=== PATIENT | male | born 1940 | race Caucasian/White ===

== ENCOUNTER 2021-01-16 08:45 | Day surgery (SDC) | payer MEDICARE, BC ==
[2021-01-13 12:40] LABS: BASOPHILS 0.4 % (0-2); EOSINOPHILS 5.8 % (0-7); HEMATOCRIT 39.1 % (42.0-54.0); HEMOGLOBIN 12.5 g/dL (13.5-17.5); IMMATURE GRANULOCYTES 1.3 % (0-5); LYMPHOCYTE ABS# 1.21 10x3/uL (1.32-3.57); LYMPHOCYTES 26.8 % (15-50); MCH 28.7 pg (26.0-34.0); MCV 89.9 fL (80.0-100.0); MEAN PLATELET VOLUME 9.4 fL (7.4-10.4); MONOCYTES 9.1 % (2-11); NEUTROPHIL ABS# 2.55 10x3/uL (1.78-5.38); NEUTROPHILS 56.6 % (40-80); PLATELET COUNT 110 10x3/uL (130-400); RBC 4.35 10x6/uL (4.20-6.10); RDW 14.7 % (11.5-14.5); WBC 4.5 10x3/uL (4.8-10.8)
[2021-01-13 12:43] LABS: ANION GAP 10.4 mmol/L (8-16); CALCIUM 8.5 mg/dL (8.5-10.1); CARBON DIOXIDE 27.7 mmol/L (21.0-32.0); CREATININE - SERUM 1.5 mg/dL (0.6-1.3); POTASSIUM - SERUM 4.1 mmol/L (3.5-5.1)
[~2021-01-16] VITALS: Ht 182.9 cm; Wt 100.7 kg
[~2021-01-16 08:45] MED LIST: AMIODARONE HCL200 MG PO; BAYER CHEWABLE81 MG PO; COREG25 MG PO; ENTRESTO 49 MG1 EACH PO; GABAPENTIN300 MG PO; GLIPIZIDE5 MG PO; OMEPRAZOLE20 M1 PO; ZYLOPRIM300 MG PO
[2021-01-16 09:26] VITALS: BP 133/72; Ht 182.9 cm; Wt 100.7 kg
--- NOTE | 2021-01-16 13:24 | NUR ---
1215 IV REMOVED AND PRESSURE HELD DRESSING APPLIED. INSTRUCTIONS GIVEN AND DR HOOPER STATED PT CAN WALK ON LEGS FULL WIEGHT AND TO TAKE A BABY ASA DAILY.
--- NOTE | 2021-01-20 07:01 | OP ---
PATIENT NAME: CARMEN GILES MEDICAL RECORD: [id number] :41 LOCATION:D[facility] ADMISSION DATE: SURGEON: FARHAN HOOPER DO DATE OF OPERATION: 01/16/2021 PROCEDURE PERFORMED: Right knee cyst or mass excision. PREOPERATIVE DIAGNOSIS: Cyst/soft tissue mass on the right knee. POSTOPERATIVE DIAGNOSIS: Cyst/soft tissue mass on the right knee. INDICATIONS: Mr. Giles is a 80-year-old male who had a cyst developing on the right knee, kept getting larger and larger, had the knee replaced. I believe he said 23 years ago. The x-rays in the office showed good alignment of the knee. No signs of loosening, but that mass was getting bigger and bigger. It is on the lateral side of the knee and I informed him that we could cut it out, but there is a high incidence of returning that I would send it off to the lab and also take cultures to find out what it was. It is likely a ganglion, but due to the location and size and the high recurrence rate. He was okay with all that as were the risks including infection, bleeding, damage to the peroneal nerve, need for further surgery, continued pain, recurrence of the cyst and he signed the consent. SURGEON: Farhan Hooper DO DESCRIPTION OF PROCEDURE: The patient was taken to the operative suite, laid in supine position, given general anesthetic, 2 grams of Ancef sedated and LMA was placed. The right lower extremity was then prepped and draped in sterile fashion. Timeout was performed, everyone was in agreement of the correct side, site, patient and procedure. I then exsanguinated the right lower extremity with an Esmarch, tourniquet was inflated to 350 mmHg. It was up for 20 minutes. I then made an incision over the cyst, which was located on the lateral knee just anterior to the fibula, oblique type incision. Made careful dissection down to the cyst and ruptured. We then sent some of the fluid off to the lab for identification. I then dissected out the cyst, got down to the stalk where I felt was a stalk as it went to the knee joint, more fluid came out and I have cultured it and then removed the cyst and then coagulated the stalk with a pickup and a Bovie, hopefully closing it. I then irrigated, tourniquet was let down. I injected the site with 30 mL of 0.25% Marcaine with epinephrine. Martha Witt, certified juvenile probation officer closed with 2-0 Vicryl in an interrupted fashion and placed a Zipline on the incision then dressed with Adaptic, 4 x 4s, ABD, cast padding, and Raul wrap. He was then awakened and taken to recovery in stable condition. BLOOD LOSS: Minimal. COMPLICATIONS: None. TRANSINT:[id number] Voice Confirmation ID: [id number] DOCUMENT ID: [id number] OPERATIVE REPORT [id number] CARMEN GILES,FARHAN Parrish DO at 0701 CC: [id number] DICTATION DATE: 01/16/21 1108 ROTARY DRYER OPERATOR: 01/16/21 1842 [facility] 01/16/21 [facility] [address] [place] [address]
== END 2021-01-16 12:40 | disposition home or self-care (01) ==
LOC: D.OPS 08:45
PROVIDERS: Anesthesiology; ATTEND Orthopaedic Surgery
DX: R22.9 Localized swelling, mass and lump, unspecified (principal); M25.561 Pain in right knee